=== PATIENT | female | born 1995 | race Caucasian/White ===

== ENCOUNTER 2017-10-17 00:01 | Outpatient (CLI) | payer MEDICAID ==
[~2017-10-17] VITALS: Ht 160 cm; Wt 94.0 kg
== END 2017-10-17 01:10 | disposition home or self-care (01) ==
LOC: LDOP 00:01
PROVIDERS: ATTEND Obstetrics & Gynecology
DX: O30.043 Twin pregnancy, dichorionic/diamniotic, third trimester (principal); O23.43 Unspecified infection of urinary tract in pregnancy, third trimester; Z3A.30 30 weeks gestation of pregnancy
CPT/HCPCS: 59025; 99201; G0463

== ENCOUNTER 2017-10-17 10:24 | Outpatient (CLI) | payer MEDICAID ==
[2017-10-17 11:03] LABS: CLUE CELLS PRESENT (NONE SEEN); WET PREP WBCS FEW (FEW)
[2017-10-17 11:15] LABS: AMPHETAMINE SCREEN, URINE Negative (Negative); BARBITURATE SCREEN, URINE Negative (Negative); BENZODIAZEPINE SCREEN, URINE Negative (Negative); CANNABINOID SCREEN, URINE Negative (Negative); COCAINE SCREEN, URINE Negative (Negative); METHADONE SCREEN, URINE Negative (Negative); OPIATE SCREEN, URINE Negative (Negative)
== END 2017-10-17 10:50 | disposition home or self-care (01) ==
LOC: LDOP 10:24
PROVIDERS: ATTEND Obstetrics & Gynecology
DX: Z34.83 Encounter for supervision of other normal pregnancy, third trimester (principal); Z3A.30 30 weeks gestation of pregnancy
CPT/HCPCS: 59025; 80307; 87210; 87808; 99211; G0463

== ENCOUNTER 2017-11-04 11:13 | Inpatient (IN) | payer MEDICAID ==
[~2017-11-04] VITALS: Ht 160 cm; Wt 94.5 kg
[2017-11-04 11:33] LABS: MICROSCOPIC NOT IND
[2017-11-04 11:37] VITALS: BP 125/71
[2017-11-04 11:45] LABS: AMPHETAMINE SCREEN, URINE Negative (Negative); BARBITURATE SCREEN, URINE Negative (Negative); BENZODIAZEPINE SCREEN, URINE Negative (Negative); CANNABINOID SCREEN, URINE Negative (Negative); COCAINE SCREEN, URINE Negative (Negative); METHADONE SCREEN, URINE Negative (Negative); OPIATE SCREEN, URINE Negative (Negative)
[2017-11-04 11:59] LABS: BASOPHILS # (AUTO) 0.14 x10^3/uL (0-0.1); BASOPHILS % (AUTO) 1 % (0-1); EOSINOPHILS # (AUTO) 0.07 x10^3/uL (0-0.4); EOSINOPHILS % (AUTO) 0 % (1-7); LYMPHOCYTES # (AUTO) 2.16 x10^3/uL (1-3.4); LYMPHOCYTES % (AUTO) 14 % (22-44); MD NO; MEAN CORPUSCULAR HEMOGLOBIN 32.9 pg (27.0-34.8); MEAN CORPUSCULAR HGB CONC 33.8 g/dL (32.4-35.8); MEAN CORPUSCULAR VOLUME 97.3 fL (80-100); MEAN PLATELET VOLUME 8.2 fL (7.4-10.4); MONOCYTES # (AUTO) 1.03 x10^3/uL (0.2-0.8); MONOCYTES % (AUTO) 7 % (2-9); NEUTROPHILS # (AUTO) 11.67 x10^3/uL (1.8-6.8); NEUTROPHILS % (AUTO) 78 % (42-75); PLATELET COUNT 220 x10^3/uL (130-400); RED BLOOD COUNT 3.78 x10^6/uL (3.82-5.3); RED CELL DISTRIBUTION WIDTH 13.5 % (9.6-15.2)
[2017-11-04 12:10] LABS: ALANINE AMINOTRANSFERASE 15 U/L (12-78); ALBUMIN 2.5 g/dL (3.4-5.0); ANION GAP 9 mmol/L (5-15); BILIRUBIN, DIRECT < 0.1 mg/dL (0.1-0.2); CALCIUM 8.9 mg/dL (8.5-10.1); CHLORIDE 110 mmol/L (98-107); CREATININE 0.37 mg/dL (0.55-1.02)
[2017-11-04 12:12] LABS: ALKALINE PHOSPHATASE 331 U/L (45-117); BILIRUBIN,TOTAL 0.4 mg/dL (0.2-1.0); TOTAL PROTEIN 6.1 g/dL (6.4-8.2)
[2017-11-04] MEDS ORDERED: BETAMETHASONE 6 MG/ML, 5ML IM ONE (15:10)
[2017-11-04] MEDS: BETAMETHASONE 6 MG/ML, 5ML IM SCH (15:13)
[2017-11-04] MEDS ORDERED: LACTATED RINGERS 1,000 ML IV SCH (17:30)
[2017-11-05] MEDS ORDERED: RANITIDINE 150 MG PO PRN (11:00)
[2017-11-05] MEDS ORDERED: PRENATAL VITAMIN HOMEMEDPO SCH (11:00)
[2017-11-05] MEDS ORDERED: SODIUM CHLORIDE FLUSH 3ML SYRINGE IVF SCH (11:00)
[2017-11-05] MEDS ORDERED: AMOXICILLIN 500 MG CAPSULE PO SCH (12:30)
[2017-11-05] MEDS: BETAMETHASONE 6 MG/ML, 5ML IM SCH (14:42)
[2017-11-05] MEDS ORDERED: RANI150T4 PO (15:49)
[2017-11-05] MEDS ORDERED: PREN1TAB10 PO (15:49)
[2017-11-05] MEDS ORDERED: AMOX-291 PO (15:50)
[2017-11-05] MEDS ORDERED: NIFE10CA PO (15:52)
== END 2017-11-05 17:07 | disposition home or self-care (01) | DRG 781 ==
LOC: LDOP 11:13 → LDIP 13:58 → OBSVTOIN 13:58
PROVIDERS: ADMIT Obstetrics & Gynecology; ATTEND Obstetrics & Gynecology
DX: O99.820 Streptococcus B carrier state complicating pregnancy (principal); O30.043 Twin pregnancy, dichorionic/diamniotic, third trimester; O12.03 Gestational edema, third trimester; Z3A.32 32 weeks gestation of pregnancy
CPT/HCPCS: 36415; 76815; 80053; 80307; 81003; 82248; 82570; 82731; 84156; 84550; 85025; 86850; 86900; 87081; 87086; 87147; J0702; J7120

== ENCOUNTER 2017-11-23 15:21 | Observation (INO) | payer MEDICAID ==
[~2017-11-23] VITALS: Ht 160 cm; Wt 96.0 kg
[~2017-11-23 15:21] MED LIST: AMOX-291 PO; NIFE10CA PO; PREN1TAB10 PO; RANI150T4 PO
[2017-11-23 16:00] VITALS: BP 123/70
[2017-11-23 17:18] LABS: AMPHETAMINE SCREEN, URINE Negative (Negative); BARBITURATE SCREEN, URINE Negative (Negative); BENZODIAZEPINE SCREEN, URINE Negative (Negative); CANNABINOID SCREEN, URINE Negative (Negative); COCAINE SCREEN, URINE Negative (Negative); METHADONE SCREEN, URINE Negative (Negative); OPIATE SCREEN, URINE Negative (Negative)
== END 2017-11-23 18:36 | disposition home or self-care (01) ==
LOC: LDIP 15:21
PROVIDERS: ADMIT Obstetrics & Gynecology; ATTEND Obstetrics & Gynecology
DX: O99.323 Drug use complicating pregnancy, third trimester (principal); F12.90 Cannabis use, unspecified, uncomplicated; Z3A.35 35 weeks gestation of pregnancy; Z79.899 Other long term (current) drug therapy
CPT/HCPCS: 59025; 76819; 80307; 99211; G0378; G0463

== ENCOUNTER 2017-12-07 18:32 | Outpatient (CLI) | payer MEDICAID ==
[~2017-12-07] VITALS: Ht 160 cm; Wt 100.5 kg
[2017-12-07 19:03] VITALS: BP 138/61
[2017-12-07 20:48] LABS: AMPHETAMINE SCREEN, URINE Negative (Negative); BARBITURATE SCREEN, URINE Negative (Negative); BENZODIAZEPINE SCREEN, URINE Negative (Negative); CANNABINOID SCREEN, URINE Negative (Negative); COCAINE SCREEN, URINE Negative (Negative); METHADONE SCREEN, URINE Negative (Negative); OPIATE SCREEN, URINE Negative (Negative)
== END 2017-12-07 21:31 | disposition home or self-care (01) ==
LOC: LDOP 18:32
PROVIDERS: ATTEND Obstetrics & Gynecology
DX: O36.8130 Decreased fetal movements, third trimester, not applicable or unspecified (principal); Z3A.37 37 weeks gestation of pregnancy
CPT/HCPCS: 59025; 76815; 80307; 99211; G0463

== ENCOUNTER 2017-12-11 17:34 | Inpatient (IN) | payer MEDICAID ==
[~2017-12-11] VITALS: Ht 160 cm; Wt 102.2 kg
[2017-12-11] MEDS: LACTATED RINGERS 1,000 ML IV SCH (17:35)
[2017-12-11] MEDS ORDERED: OXYTOCIN 30U/ 0.9% NaCL 500ML 500 ML IV PRN (17:43)
[2017-12-11] MEDS: D5%-LACTATED RINGERS 1,000 ML IV SCH (17:43)
[2017-12-11] MEDS ORDERED: OXYTOCIN 30U/ 0.9% NaCL 500ML 500 ML IV ONE (17:43)
[2017-12-11] MEDS ORDERED: PENICILLIN GK 5,000,000 UNITS in SODIUM CHLORIDE 0.9% 100 ML IVPB ONE (18:00)
[2017-12-11] MEDS ORDERED: CALCIUM CARBONATE 500 MG TAB.CHEW PO PRN (18:00)
[2017-12-11] MEDS ORDERED: PLEASE ENTER HEIGHT AND WEIGHT MC SCH (18:00)
[2017-12-11] MEDS ORDERED: ONDANSETRON 2MG/ML, 2ML IVPush PRN (18:00)
[2017-12-11] MEDS ORDERED: FENTANYL PF 100 MCG/2ML IV PRN (18:00)
[2017-12-11 18:22] LABS: BASOPHILS # (AUTO) 0.14 x10^3/uL (0-0.1); BASOPHILS % (AUTO) 1 % (0-1); EOSINOPHILS # (AUTO) 0.02 x10^3/uL (0-0.4); EOSINOPHILS % (AUTO) 0 % (1-7); LYMPHOCYTES # (AUTO) 1.76 x10^3/uL (1-3.4); LYMPHOCYTES % (AUTO) 15 % (22-44); MD NO; MEAN CORPUSCULAR HEMOGLOBIN 33.8 pg (27.0-34.8); MEAN CORPUSCULAR HGB CONC 34.5 g/dL (32.4-35.8); MEAN CORPUSCULAR VOLUME 97.8 fL (80-100); MEAN PLATELET VOLUME 8.3 fL (7.4-10.4); MONOCYTES % (AUTO) 6 % (2-9); NEUTROPHILS # (AUTO) 9.38 x10^3/uL (1.8-6.8); NEUTROPHILS % (AUTO) 78 % (42-75); PLATELET COUNT 168 x10^3/uL (130-400); RED BLOOD COUNT 3.62 x10^6/uL (3.82-5.3); RED CELL DISTRIBUTION WIDTH 13.8 % (9.6-15.2)
[2017-12-11 18:59] VITALS: BP 128/86
[2017-12-11] MEDS ORDERED: NEWBORN KIT ONE (19:34)
[2017-12-11] MEDS ORDERED: OXYTOCIN 30U/ 0.9% NaCL 500ML 500 ML ONE (19:45)
[2017-12-11] MEDS ORDERED: MISOPROSTOL 200 MCG TABLET ONE (19:46)
[2017-12-11] MEDS ORDERED: FENTANYL/BUPIV./NS/PF 250 ML EPIDCONT SCH (20:17)
[2017-12-11] MEDS ORDERED: FENTANYL PF 500 MCG, BUPIVACAINE/PF 0.5%, 30ML 62.5 ML in SODIUM CHLORIDE 0.9% 177.5 ML EPIDCONT SCH (20:30)
[2017-12-11 21:47] LABS: AMPHETAMINE SCREEN, URINE Negative (Negative); BARBITURATE SCREEN, URINE Negative (Negative); BENZODIAZEPINE SCREEN, URINE Negative (Negative); CANNABINOID SCREEN, URINE Negative (Negative); COCAINE SCREEN, URINE Negative (Negative); METHADONE SCREEN, URINE Negative (Negative); OPIATE SCREEN, URINE Negative (Negative)
[2017-12-11] MEDS: PENICILLIN GK 2,500,000 UNITS in DEXTROSE 5% 100 ML IVPB SCH (22:27)
[2017-12-11 22:33] VITALS: BP 125/78
[2017-12-12] MEDS ORDERED: FENTANYL PF 100 MCG/2ML ONE ×4 (00:39→22:27)
[2017-12-12] MEDS: FENTANYL PF 100 MCG/2ML IVPush PRN ×3 (00:42→06:13)
[2017-12-12] MEDS: D5%-LACTATED RINGERS 1,000 ML IV SCH ×2 (01:43→12:34)
[2017-12-12] MEDS: LACTATED RINGERS 1,000 ML IV SCH ×4 (01:43→08:49)
[2017-12-12] MEDS: PENICILLIN GK 2,500,000 UNITS in DEXTROSE 5% 100 ML IVPB SCH ×5 (02:17→18:21)
[2017-12-12 06:00] VITALS: BP 121/77
[2017-12-12] MEDS ORDERED: BUPIVACAINE 0.25% ONE ×2 (08:05→18:28)
[2017-12-12] MEDS ORDERED: FENTANYL/BUPIV./NS/PF 250 ML EPIDCONT SCH (16:27)
[2017-12-12] MEDS ORDERED: LACTATED RINGERS 1,000 ML IV SCH (16:27)
[2017-12-12] MEDS ORDERED: LACTATED RINGERS 1,000 ML IVBOLUS PRN (16:30)
[2017-12-12] MEDS ORDERED: EPHEDRINE 50 MG/ML, 1ML IVPush PRN (16:30)
[2017-12-12] MEDS ORDERED: SODIUM CITRATE/CITRIC ACID 30 ML UDC ONE (20:59)
[2017-12-12] MEDS ORDERED: METOCLOPRAMIDE 5 MG/ML, 2ML ONE (21:00)
[2017-12-12] MEDS ORDERED: CEFAZOLIN 1,000 MG ONE (22:27)
[2017-12-12] MEDS ORDERED: ONDANSETRON 2MG/ML, 2ML ONE (22:27)
[2017-12-12] MEDS ORDERED: OXYTOCIN 10 UNITS/ML, 1ML ONE (22:27)
[2017-12-12] MEDS ORDERED: LIDOCAINE-MPF 2% ,5ML ONE ×2 (22:29)
[2017-12-12] MEDS ORDERED: SODIUM CHLORIDE 0.9% PF 10ML ONE ×2 (22:39)
[2017-12-12] MEDS ORDERED: HYDROmorphone 2 MG/ML, 1ML ONE (22:53)
[2017-12-12] MEDS ORDERED: KETOROLAC 30 MG/1 ML ONE (23:50)
[2017-12-13] MEDS ORDERED: KETOROLAC 30 MG/1 ML IVPush SCH
[2017-12-13] MEDS: OXYTOCIN 30U/ 0.9% NaCL 500ML 500 ML IV SCH ×3 (00:03→20:03)
[2017-12-13] MEDS: LACTATED RINGERS 1,000 ML IV SCH ×6 (00:03→20:03)
[2017-12-13] MEDS ORDERED: BISACODYL 10 MG SUPP PR PRN (00:30)
[2017-12-13] MEDS ORDERED: CARBOPROST TROMETHAMINE 250 MCG/ML, 1ML IM PRN (00:30)
[2017-12-13] MEDS ORDERED: MISOPROSTOL 200 MCG TABLET PR PRN (00:30)
[2017-12-13] MEDS ORDERED: ONDANSETRON 2MG/ML, 2ML IV PRN (00:30)
[2017-12-13] MEDS: KETOROLAC 30 MG/1 ML IV SCH ×4 (00:30→19:07)
[2017-12-13] MEDS ORDERED: GLYCERIN ADULT SUPP PR PRN (00:30)
[2017-12-13] MEDS ORDERED: IBUPROFEN 800 MG TABLET PO PRN (00:30)
[2017-12-13] MEDS ORDERED: METOCLOPRAMIDE 5 MG/ML, 2ML IV PRN (00:30)
[2017-12-13] MEDS ORDERED: morphine SULFATE 10 MG/ML, 1ML IVPush PRN (00:30)
[2017-12-13] MEDS ORDERED: MEPERIDINE/PF 50 MG/ML ONE (00:30)
[2017-12-13] MEDS ORDERED: MEPERIDINE/PF 25MG/0.5ML IVPush PRN (00:30)
[2017-12-13] MEDS ORDERED: METHYLERGONOVINE 0.2 MG/ML IM PRN (00:30)
[2017-12-13] MEDS ORDERED: ACETAMINOPHEN 325 MG TABLET PO PRN (00:30)
[2017-12-13 01:55] VITALS: BP 126/86
[2017-12-13 04:00] VITALS: BP 136/83
[2017-12-13 07:02] LABS: MEAN CORPUSCULAR HGB CONC 32.8 g/dL (32.4-35.8); MEAN CORPUSCULAR VOLUME 97.7 fL (80-100); MEAN PLATELET VOLUME 8.3 fL (7.4-10.4); PLATELET COUNT 201 x10^3/uL (130-400); RED BLOOD COUNT 3.29 x10^6/uL (3.82-5.3); RED CELL DISTRIBUTION WIDTH 13.9 % (9.6-15.2)
[2017-12-13 07:15] VITALS: BP 134/88
[2017-12-13 07:20] LABS: BASOPHILS % (AUTO) 0 % (0-1); EOSINOPHILS % (AUTO) 0 % (1-7); LYMPHOCYTES # (AUTO) 1.28 x10^3/uL (1-3.4); LYMPHOCYTES % (AUTO) 6 % (22-44); MD SCAN; MONOCYTES # (AUTO) 1.16 x10^3/uL (0.2-0.8); MONOCYTES % (AUTO) 6 % (2-9); NEUTROPHILS # (AUTO) 17.52 x10^3/uL (1.8-6.8); NEUTROPHILS % (AUTO) 88 % (42-75)
[2017-12-13] MEDS: PRENATAL VIT/IRON/FA 1 EACH TABLET PO SCH (08:27)
[2017-12-13] MEDS: OXYcodone/APAP 5/325MG TABLET PO PRN ×4 (08:27→21:08)
[2017-12-13] MEDS: DOCUSATE 100 MG CAPSULE PO PRN ×2 (08:27→21:08)
[2017-12-13 15:00] VITALS: BP 116/77
[2017-12-13] MEDS ORDERED: DIPH,PERTUSS(ACELL),TET VAC/PF NC IM-VACC ONE ×2 (16:26→17:00)
[2017-12-13 21:00] VITALS: BP 125/83
[2017-12-14] MEDS: LACTATED RINGERS 1,000 ML IV SCH ×5 (00:03→20:30)
[2017-12-14] MEDS: KETOROLAC 30 MG/1 ML IV SCH ×4 (00:59→19:56)
[2017-12-14] MEDS: OXYcodone/APAP 5/325MG TABLET PO PRN ×4 (01:38→18:41)
[2017-12-14] MEDS: OXYTOCIN 30U/ 0.9% NaCL 500ML 500 ML IV SCH ×2 (06:03→16:03)
[2017-12-14] MEDS: PRENATAL VIT/IRON/FA 1 EACH TABLET PO SCH (09:00)
[2017-12-14 12:10] VITALS: BP 134/86
[2017-12-14] MEDS ORDERED: GENTAMICIN PER PHARMACY MC PRN (12:30)
[2017-12-14] MEDS ORDERED: ACETAMINOPHEN 500 MG TABLET PO ONE (12:30)
[2017-12-14 12:50] VITALS: BP 127/83
[2017-12-14] MEDS: AMPICILLIN 2 GM in SODIUM CHLORIDE 0.9% 100 ML IV SCH ×2 (13:21→19:57)
[2017-12-14 13:28] LABS: MEAN CORPUSCULAR HEMOGLOBIN 33.5 pg (27.0-34.8); MEAN CORPUSCULAR HGB CONC 34.8 g/dL (32.4-35.8); MEAN CORPUSCULAR VOLUME 96.3 fL (80-100); MEAN PLATELET VOLUME 7.6 fL (7.4-10.4); PLATELET COUNT 206 x10^3/uL (130-400); RED BLOOD COUNT 2.62 x10^6/uL (3.82-5.3); RED CELL DISTRIBUTION WIDTH 14.4 % (9.6-15.2)
[2017-12-14 13:30] LABS: ALBUMIN 1.9 g/dL (3.4-5.0); ANION GAP 11 mmol/L (5-15); CALCIUM 8.2 mg/dL (8.5-10.1); CHLORIDE 112 mmol/L (98-107)
[2017-12-14] MEDS ORDERED: PHARMACOKINETIC MONITORING MC PRN (13:30)
[2017-12-14] MEDS ORDERED: PHARMACOKINETIC CONSULTATION MC ONE (13:30)
[2017-12-14 13:35] LABS: ALANINE AMINOTRANSFERASE 9 U/L (12-78); ALKALINE PHOSPHATASE 360 U/L (45-117); BILIRUBIN,TOTAL 0.5 mg/dL (0.2-1.0); CREATININE 0.68 mg/dL (0.55-1.02); TOTAL PROTEIN 5.3 g/dL (6.4-8.2)
[2017-12-14] MEDS: CLINDAMYCIN PMX 900MG/50ML 50 ML IV SCH ×2 (13:58→20:39)
[2017-12-14 14:03] LABS: BASOPHILS # (AUTO) 0.02 x10^3/uL (0-0.1); BASOPHILS % (AUTO) 0 % (0-1); EOSINOPHILS # (AUTO) 0.01 x10^3/uL (0-0.4); EOSINOPHILS % (AUTO) 0 % (1-7); LYMPHOCYTES # (AUTO) 1.12 x10^3/uL (1-3.4); LYMPHOCYTES % (AUTO) 7 % (22-44); MD SCAN; MONOCYTES # (AUTO) 0.92 x10^3/uL (0.2-0.8); MONOCYTES % (AUTO) 6 % (2-9); NEUTROPHILS # (AUTO) 13.29 x10^3/uL (1.8-6.8); NEUTROPHILS % (AUTO) 87 % (42-75)
[2017-12-14] MEDS: GENTAMICIN 350 MG in SODIUM CHLORIDE 0.9% 100 ML IV SCH (15:06)
[2017-12-14 16:07] VITALS: BP 111/68
[2017-12-14 19:45] VITALS: BP 114/76
[2017-12-14] MEDS: DOCUSATE 100 MG CAPSULE PO PRN (19:57)
[2017-12-15 00:15] VITALS: BP 115/77
[2017-12-15] MEDS ORDERED: OXYcodone IR 5MG TABLET PO PRN (00:30)
[2017-12-15] MEDS ORDERED: OXYcodone IR 5MG TABLET ONE (00:34)
[2017-12-15] MEDS: OXYTOCIN 30U/ 0.9% NaCL 500ML 500 ML IV SCH ×3 (02:03→22:03)
[2017-12-15] MEDS: IBUPROFEN 600 MG TABLET PO PRN ×4 (02:17→21:55)
[2017-12-15] MEDS: AMPICILLIN 2 GM in SODIUM CHLORIDE 0.9% 100 ML IV SCH ×4 (02:17→19:34)
[2017-12-15 04:00] VITALS: BP 115/72
[2017-12-15] MEDS: CLINDAMYCIN PMX 900MG/50ML 50 ML IV SCH ×3 (04:12→20:14)
[2017-12-15] MEDS: LACTATED RINGERS 1,000 ML IV SCH ×3 (04:17→20:30)
[2017-12-15 06:50] VITALS: BP 109/76
[2017-12-15] MEDS: OXYcodone/APAP 5/325MG TABLET PO PRN ×3 (07:44→21:55)
[2017-12-15] MEDS: DOCUSATE 100 MG CAPSULE PO PRN ×2 (07:45→21:55)
[2017-12-15] MEDS: PRENATAL VIT/IRON/FA 1 EACH TABLET PO SCH (07:45)
[2017-12-15 08:59] LABS: BASOPHILS # (AUTO) 0.02 x10^3/uL (0-0.1); BASOPHILS % (AUTO) 0 % (0-1); EOSINOPHILS # (AUTO) 0.03 x10^3/uL (0-0.4); EOSINOPHILS % (AUTO) 0 % (1-7); LYMPHOCYTES # (AUTO) 1.29 x10^3/uL (1-3.4); LYMPHOCYTES % (AUTO) 10 % (22-44); MD NO; MEAN CORPUSCULAR HEMOGLOBIN 33.2 pg (27.0-34.8); MEAN CORPUSCULAR HGB CONC 34.2 g/dL (32.4-35.8); MEAN CORPUSCULAR VOLUME 96.9 fL (80-100); MEAN PLATELET VOLUME 7.2 fL (7.4-10.4); MONOCYTES # (AUTO) 0.83 x10^3/uL (0.2-0.8); MONOCYTES % (AUTO) 6 % (2-9); NEUTROPHILS # (AUTO) 10.83 x10^3/uL (1.8-6.8); NEUTROPHILS % (AUTO) 83 % (42-75); PLATELET COUNT 215 x10^3/uL (130-400); RED BLOOD COUNT 2.42 x10^6/uL (3.82-5.3); RED CELL DISTRIBUTION WIDTH 14.5 % (9.6-15.2)
[2017-12-15 11:50] VITALS: BP 113/70
[2017-12-15] MEDS: GENTAMICIN 350 MG in SODIUM CHLORIDE 0.9% 100 ML IV SCH (16:02)
[2017-12-15 16:30] VITALS: BP 119/78
[2017-12-15 20:00] VITALS: BP 109/73
[2017-12-16] MEDS: AMPICILLIN 2 GM in SODIUM CHLORIDE 0.9% 100 ML IV SCH ×2 (01:41→07:49)
[2017-12-16] MEDS: IBUPROFEN 600 MG TABLET PO PRN ×3 (03:42→15:25)
[2017-12-16] MEDS: OXYcodone/APAP 5/325MG TABLET PO PRN ×3 (03:42→15:25)
[2017-12-16 03:45] VITALS: BP 117/77
[2017-12-16] MEDS: CLINDAMYCIN PMX 900MG/50ML 50 ML IV SCH (04:07)
[2017-12-16] MEDS: LACTATED RINGERS 1,000 ML IV SCH ×2 (04:30→12:30)
[2017-12-16 06:50] VITALS: BP 127/72
[2017-12-16 08:02] LABS: BASOPHILS # (AUTO) 0.04 x10^3/uL (0-0.1); BASOPHILS % (AUTO) 0 % (0-1); EOSINOPHILS # (AUTO) 0.08 x10^3/uL (0-0.4); EOSINOPHILS % (AUTO) 1 % (1-7); LYMPHOCYTES # (AUTO) 1.36 x10^3/uL (1-3.4); LYMPHOCYTES % (AUTO) 13 % (22-44); MD NO; MEAN CORPUSCULAR HEMOGLOBIN 32.8 pg (27.0-34.8); MEAN CORPUSCULAR HGB CONC 33.5 g/dL (32.4-35.8); MONOCYTES # (AUTO) 0.77 x10^3/uL (0.2-0.8); MONOCYTES % (AUTO) 7 % (2-9); NEUTROPHILS # (AUTO) 8.25 x10^3/uL (1.8-6.8); NEUTROPHILS % (AUTO) 79 % (42-75); PLATELET COUNT 268 x10^3/uL (130-400); RED BLOOD COUNT 2.51 x10^6/uL (3.82-5.3); RED CELL DISTRIBUTION WIDTH 14.3 % (9.6-15.2)
[2017-12-16] MEDS: OXYTOCIN 30U/ 0.9% NaCL 500ML 500 ML IV SCH (08:03)
[2017-12-16] MEDS: PRENATAL VIT/IRON/FA 1 EACH TABLET PO SCH (09:30)
[2017-12-16] MEDS: DOCUSATE 100 MG CAPSULE PO PRN (09:30)
[2017-12-16 11:45] VITALS: BP 120/81
[2017-12-16] MEDS ORDERED: PHARMACOKINETIC MONITORING MC PRN (13:00)
[2017-12-16] MEDS ORDERED: OXYC-302 PO (14:38)
[2017-12-16] MEDS ORDERED: IBUP-1222 PO (14:38)
== END 2017-12-16 17:32 | disposition home or self-care (01) | DRG 765 ==
LOC: LDIP 17:34 → 2NW 12-13 01:27
PROVIDERS: ADMIT Obstetrics & Gynecology; ATTEND Obstetrics & Gynecology
PROC: 10D00Z1 Extraction of Products of Conception, Low, Open Approach (ICD-10-PCS; principal; 2017-12-13)
DX: O30.043 Twin pregnancy, dichorionic/diamniotic, third trimester (principal); O41.1230 Chorioamnionitis, third trimester, not applicable or unspecified; Z37.2 Twins, both liveborn; O76 Abnormality in fetal heart rate and rhythm complicating labor and delivery; Z3A.38 38 weeks gestation of pregnancy
CPT/HCPCS: 36415; J7121; 80053; 80307; 82803; 83605; 85025; 86850; 86900; 87040; 89060; 90715; G0378; J0290; J0690; J1885; J2175; J2405; J2540; J3010; J3490; J1580; J2590; J7050; J7120; Q0114

== ENCOUNTER 2018-05-21 13:00 | Emergency (ER) | payer MEDICAID ==
[~2018-05-21] VITALS: Ht 160 cm; Wt 74.4 kg
[~2018-05-21 13:00] MED LIST changes: +IBUP-1222 PO; +OXYC-302 PO
[2018-05-21 13:13] VITALS: BP 121/73
[2018-05-21] MEDS ORDERED: KETOROLAC 30 MG/1 ML IM ONE (14:00)
[2018-05-21] MEDS ORDERED: KETOROLAC 30 MG/1 ML ONE (14:01)
--- NOTE | 2018-05-21 14:18 | NUR ---
pt to ed for multiple palpable masses wtih erythema and tenderness to right armpit. 1 large abscess drained 4 days ago. accompanied by mother. pa assessment complete. orders received. medicated per may. labs drawn. xray complete. awaitin brooke and results.
--- NOTE | 2018-05-21 14:27 | NUR ---
us at bedside
[2018-05-21 14:39] LABS: BASOPHILS # (AUTO) 0.08 x10^3/uL (0-0.1); BASOPHILS % (AUTO) 1 % (0-1); EOSINOPHILS % (AUTO) 0 % (1-7); LYMPHOCYTES % (AUTO) 14 % (22-44); MD NO; MEAN CORPUSCULAR HEMOGLOBIN 28.9 pg (27.0-34.8); MEAN CORPUSCULAR HGB CONC 33.4 g/dL (32.4-35.8); MEAN CORPUSCULAR VOLUME 86.4 fL (80-100); MEAN PLATELET VOLUME 7.9 fL (7.4-10.4); MONOCYTES # (AUTO) 1.37 x10^3/uL (0.2-0.8); MONOCYTES % (AUTO) 11 % (2-9); NEUTROPHILS # (AUTO) 9.75 x10^3/uL (1.8-6.8); NEUTROPHILS % (AUTO) 75 % (42-75); PLATELET COUNT 302 x10^3/uL (130-400)
[2018-05-21 14:48] LABS: ALBUMIN 3.8 g/dL (3.4-5.0); ANION GAP 5 mmol/L (5-15); CALCIUM 9.1 mg/dL (8.5-10.1); CHLORIDE 104 mmol/L (98-107); CREATININE 0.65 mg/dL (0.55-1.02)
[2018-05-21] MEDS ORDERED: LIDOCAINE-MPF 1%, 5ML INFIL ONE (16:00)
[2018-05-21] MEDS ORDERED: LIDOCAINE-MPF 1%, 5ML ONE (16:02)
== END 2018-05-21 16:54 | disposition home or self-care (01) ==
LOC: ED 16:01
DX: L02.411 Cutaneous abscess of right axilla (principal); L04.2 Acute lymphadenitis of upper limb
CPT/HCPCS: 10061; 36415; 71046; 76881; 80048; 82040; 85025; 96372; 99284; J1885

== ENCOUNTER 2018-05-24 12:52 | Emergency (ER) | payer MEDICAID ==
[~2018-05-24] VITALS: Ht 160 cm; Wt 75.0 kg
[2018-05-24 13:10] VITALS: BP 104/66
[2018-05-24] MEDS ORDERED: DIPH,PERTUSS(ACELL),TET VAC/PF 0.5 ML IM-VACC ONE ×2 (14:00→14:08)
[2018-05-24] MEDS ORDERED: HYDROcodone/APAP 5/325 TABLET PO ONE (14:00)
[2018-05-24] MEDS ORDERED: LIDOCAINE-MPF 1%, 5ML INFIL ONE (14:00)
[2018-05-24] MEDS ORDERED: HYDROcodone/APAP 5/325 TABLET ONE (14:07)
--- NOTE | 2018-05-24 14:24 | NUR ---
PT MEDICATED PER ORDERS. I&D DONE BY ED PA. MOTHER AT BS.
--- NOTE | 2018-05-24 15:04 | NUR ---
AFTER I&D, PT HAS 4 OPEN WOUNDS WITH PACKING IN EACH. DRESSING APPLIED TO AXILLARY AREA WITH ADAPTIC, ABD PAD, SILK TAPE. D/C INSTRUCTIONS, RX, & F/U APPT RV'WD WITH PT AND MOTHER, THEY VERBALIZE UNDERSTANDING. PT AMBULATED OUT OF ED WITHOUT DIFFICULTY.
== END 2018-05-24 15:07 | disposition home or self-care (01) ==
LOC: ED 15:05
DX: L02.411 Cutaneous abscess of right axilla (principal); F17.200 Nicotine dependence, unspecified, uncomplicated
CPT/HCPCS: 10060; 90471; 90715; 99283

== ENCOUNTER 2019-10-10 16:48 | Emergency (ER) | payer MEDICAID ==
[~2019-10-10] VITALS: Ht 160 cm; Wt 69.3 kg
[2019-10-10 16:51] VITALS: BP 110/72
[2019-10-10] MEDS ORDERED: HYDROmorphone 1 MG/ML, 1ML INJ ONE (17:19)
[2019-10-10] MEDS ORDERED: ONDANSETRON ODT 4 MG ONE (17:19)
[2019-10-10] MEDS ORDERED: HYDROmorphone 2 MG/ML, 1ML IM ONE (17:30)
[2019-10-10] MEDS ORDERED: ONDANSETRON ODT 4 MG PO ONE (17:30)
[2019-10-10] MEDS ORDERED: LIDOCAINE-MPF 1%, 5ML ONE (18:11)
--- NOTE | 2019-10-10 18:17 | NUR ---
CABRERA GAMBOA AT BEDSIDE FOR I&D.
--- NOTE | 2019-10-10 18:50 | NUR ---
Patient given discharge instructions and they have confirmed that they understand the instructions. Patient ambulatory with steady gait.
== END 2019-10-10 18:51 | disposition home or self-care (01) ==
LOC: ED 17:57
DX: L02.411 Cutaneous abscess of right axilla (principal)
CPT/HCPCS: 10060; 96372; 99283; J1170; Q0162